=== PATIENT | female | born 1980 | race Caucasian/White ===

== ENCOUNTER 2017-01-02 06:55 | Inpatient (IN) | payer OTHER ==
[~2017-01-02] VITALS: Ht 154.9 cm; Wt 68.0 kg
[~2017-01-02 06:55] MED LIST: ENDOCET 5-3251 EACH PO; IBUPROFEN800 MG PO; PRENATAL TABLE1 EAC3 PO
[2017-01-02 07:33] VITALS: BP 103/58
[2017-01-02] MEDS ORDERED: IBUPROFEN800 MG PO (11:14)
[2017-01-02] MEDS ORDERED: ENDOCET 5-3251 EACH PO (11:15)
[2017-01-02 12:49] VITALS: BP 114/63
[2017-01-02 12:52] VITALS: BP 108/59
[2017-01-02 14:08] VITALS: BP 112/65
[2017-01-02 16:27] VITALS: BP 123/80
[2017-01-03 05:38] LABS: EOSINOPHIL (%) 2.7 % (0-5); EOSINOPHIL COUNT 0.3 K/uL (0-0.3); IMMATURE GRANULOCYTE (%) 0.5 % (0.0-0.7); IMMATURE GRANULOCYTE COUNT 0.1 K/uL; LYMPHOCYTE COUNT 1.8 K/uL (1.0-2.8); MCH 29.8 PG (29.0-34.0); MCHC 33.4 G/DL (30.0-36.0); MCV 89.2 FL (83-99); MEAN PLAT.VOLUME 11.1 uM^3 (9.5-12.4); MONOCYTE (%) 6.9 % (3-12); MONOCYTE COUNT 0.8 K/uL (0-0.8); NEUTROPHIL (%) 74.6 % (45-76); PLATELET COUNT 180 K/uL (156-360); RBC DIS.WIDTH-CV 11.9 % (11.8-14.6); RBC DIS.WIDTH-SD 38.8 % (39-53); RED BLOOD COUNT 3.25 M/uL (3.80-5.20); WHITE BLOOD COUNT 12.1 K/uL (4.1-10.2)
[2017-01-03 07:18] VITALS: BP 106/51
[2017-01-03 11:37] VITALS: BP 124/62
[2017-01-03 15:15] VITALS: BP 128/67
[2017-01-03 19:23] VITALS: BP 117/61
[2017-01-03 22:15] VITALS: BP 117/55
[2017-01-04 02:51] VITALS: BP 121/58
[2017-01-04 07:22] VITALS: BP 123/66
[2017-01-04 10:59] VITALS: BP 125/71
== END 2017-01-04 13:30 | disposition home or self-care (01) | DRG 766 ==
LOC: 2SOUTH → 2WEST 06:55 → 2SOUTH 09:30 → 2WEST 01-04 13:30
PROVIDERS: Obstetrics & Gynecology
PROC: 10D00Z1 Extraction of Products of Conception, Low, Open Approach (ICD-10-PCS; principal; 2017-01-02)
PROC: 0UB70ZZ Excision of Bilateral Fallopian Tubes, Open Approach (ICD-10-PCS; principal; 2017-01-02)
DX: O34.211 Maternal care for low transverse scar from previous cesarean delivery (principal); Z30.2 Encounter for sterilization; O99.824 Streptococcus B carrier state complicating childbirth; Z3A.39 39 weeks gestation of pregnancy; Z37.0 Single live birth
CPT/HCPCS: 36415; 85025; 86900; 86901; 87086; 88302; J0131; J1580; J1885; J2270; J2274; J2300; J2405; J2590; J3010; J7120